=== PATIENT | female | born 1940 | race Asian ===

== ENCOUNTER 2024-02-09 12:24 | Emergency (ER) | payer OTHER ==
[2024-02-09 12:28] VITALS: BP 122/75; PULSE 85; RESP 18; TEMP 98.3; BMI 25.6
[2024-02-09 13:53] LABS: BASO % 1.3 % (0-2.0); EOS % 11.7 % (0-4.5); HEMATOCRIT 41.7 % (32.4-45.2); LYMPH % 22.3 % (8-40); MCH 31.3 pg (25.7-33.7); MCHC 33.5 g/dl (32.0-36.0); MEAN CELL VOLUME 93.7 fl (80-96); MEAN PLT VOLUME 8.1 fl (7.5-11.1); MONO % 7.7 % (3.8-10.2); PLATELET COUNT 199 10^3/uL (134-434); RBC 4.46 M/mm3 (3.60-5.2); RDW 14.5 % (11.6-15.6); WHITE BLOOD COUNT 5.6 K/mm3 (4.0-10.0)
[2024-02-09 14:56] LABS: POTASSIUM 4.7 mmol/L (3.5-5.1)
[2024-02-09 14:58] LABS: CALCIUM 9.3 mg/dL (8.5-10.1)
[2024-02-09 15:08] LABS: BILIRUBIN,TOTAL 0.7 mg/dL (0.2-1); CREATININE 0.8 mg/dL (0.55-1.3); TOT PROT 7.7 g/dl (6.4-8.2)
[2024-02-09] MEDS ORDERED: predniSONE 20 MG TABLET (UD) ONE (16:18)
[2024-02-09] MEDS: predniSONE 20 MG TABLET (UD) PO ONE (16:23)
== END 2024-02-09 20:48 | disposition home or self-care (01) ==
LOC: JER 12:24
DX: M79.89 Other specified soft tissue disorders (principal); M79.604 Pain in right leg; M79.605 Pain in left leg
CPT/HCPCS: 36415; 72193-TC; 73701-TC-RT; 80053; 83880; 85025; 93970-TC; 99285-25; Q9967